=== PATIENT | male | born 1965 | race Caucasian/White ===

== ENCOUNTER 2025-10-02 19:37 | Inpatient (IN) | payer MEDICAID ==
[~2025-10-02] VITALS: Ht 162.6 cm; Wt 64.0 kg
[2025-10-02 19:38] VITALS: O2SAT 96
[2025-10-02 20:47] LABS: BASOPHILS % 0.4 % (0.0-2.0); EOSINOPHILS % 0.7 % (0.0-5.0); HEMATOCRIT. 31.7 % (42.0-52.0); HEMOGLOBIN. 10.5 g/dL (14.0-18.0); LYMPHOCYTES % 11.6 % (20.0-50.0); MEAN PLATELET VOLUME 10.2 fl (7.4-10.4); MONOCYTES % 8.6 % (2.0-8.0); NEUTROPHILS % 78.7 % (40.0-76.0); PLATELET 149 x1000/uL (130-400); RED BLOOD CELL COUNT 3.21 mill/uL (4.7-6.1); RED CELL DISTRIBUTION WIDTH 14.6 % (11.6-14.6)
[2025-10-02 21:01] LABS: TROPONIN I HIGH SENSITIVITY 23 ng/L (3.0-53); UREA NITROGEN BLOOD 70 mg/dL (9-23)
[2025-10-02 21:02] LABS: ASPARTATE AMINOTRANSFERASE 12 IU/L (<34); BILIRUBIN DIRECT 0.1 mg/dL (<=3.0)
[2025-10-02 21:03] LABS: BILIRUBIN TOTAL 0.3 mg/dL (0.1-1.0); PROTEIN TOTAL 7.7 g/dL (6.0-8.3)
[2025-10-02 21:06] LABS: CREATININE 15.4 mg/dL (0.6-1.3)
[2025-10-02] MEDS ORDERED: FUROSEMIDE 100MG/10ML VIAL IV SCH (21:15)
[2025-10-02] MEDS ORDERED: ALBUTEROL (0.5%) 2.5MG/0.5ML NEB HHN SCH (21:15)
[2025-10-02] MEDS: MORPHINE SULFATE 2 MG/ML INJ (NOT FOR IM USE) IV SCH (23:11)
[2025-10-02] MEDS: INSULIN REGULAR (HUMULIN R) 1000UNITS/10ML VIAL IV SCH (23:17)
[2025-10-02] MEDS: DEXTROSE 50% WATER 50ML SYRINGE IV SCH (23:20)
[2025-10-02] MEDS: CALCIUM GLUCONATE 100MG/ML 10ML VIAL IV SCH (23:21)
[2025-10-02] MEDS ORDERED: IPRATROPIUM/ALBUTEROL 0.5-3(2.5)MG/3ML NEB HHN PRN (23:30)
[2025-10-02] MEDS ORDERED: MAGNESIUM/ALUMINUM HYDROXIDE/SIMETHICONE 30ML UDC PO PRN (23:30)
[2025-10-02] MEDS ORDERED: ALBUTEROL (0.5%) 2.5MG/0.5ML NEB HHN NR (23:30)
[2025-10-02] MEDS ORDERED: FUROSEMIDE 100MG/10ML VIAL IV NR (23:30)
[2025-10-03] VITALS (14 sets, daily range): BP systolic 119–164; BP diastolic 55–85; PULSE 69–96; RESP 18–22; TEMP 36.114–37.2; O2SAT 97–100
[2025-10-03] MEDS ORDERED: ASPI-1406 MT (01:41)
[2025-10-03] MEDS ORDERED: SUCR500T PO (01:41)
[2025-10-03] MEDS ORDERED: SODI5POW2 PO (01:41)
[2025-10-03] MEDS ORDERED: TRAM50TA3 MT (01:41)
[2025-10-03] MEDS ORDERED: OMEP20CA14 PO (01:41)
[2025-10-03] MEDS ORDERED: ATOR40TA70 MT (01:41)
[2025-10-03] MEDS ORDERED: TOPUD PO (01:41)
[2025-10-03] MEDS ORDERED: ACID1CAP3 MT (01:41)
[2025-10-03] MEDS ORDERED: AMLO10TA80 PO (01:41)
[2025-10-03] MEDS ORDERED: LISI40TA21 MT (01:41)
[2025-10-03] MEDS ORDERED: ALLO100T MT (01:41)
[2025-10-03] MEDS ORDERED: VITA1CAP16 PO (01:41)
[2025-10-03] MEDS ORDERED: FOLI-43 PO (01:41)
[2025-10-03] MEDS ORDERED: FOLI0.8T42 MT (01:41)
[2025-10-03] MEDS ORDERED: OMEG100036 MT (01:41)
[2025-10-03] MEDS ORDERED: *PATIENT'S OWN MEDICATION STORAGE XX SCH (04:30)
[2025-10-03] MEDS: TRAMADOL 50MG TABLET PO PRN (06:14)
[2025-10-03 08:32] LABS: BASOPHILS % 0.4 % (0.0-2.0); EOSINOPHILS % 0.2 % (0.0-5.0); HEMATOCRIT. 35.8 % (42.0-52.0); HEMOGLOBIN. 11.9 g/dL (14.0-18.0); LYMPHOCYTES % 14.3 % (20.0-50.0); MEAN PLATELET VOLUME 10.4 fl (7.4-10.4); MONOCYTES % 8.6 % (2.0-8.0); NEUTROPHILS % 76.5 % (40.0-76.0); PLATELET 166 x1000/uL (130-400); RED BLOOD CELL COUNT 3.65 mill/uL (4.7-6.1); RED CELL DISTRIBUTION WIDTH 14.5 % (11.6-14.6)
[2025-10-03 08:44] LABS: UREA NITROGEN BLOOD 29.0 mg/dL (9-23)
[2025-10-03 08:47] LABS: PHOSPHORUS 2.7 mg/dL (2.5-4.9)
[2025-10-03] MEDS: ALLOPURINOL 100 MG TABLET PO SCH (08:47)
[2025-10-03] MEDS: FISH OIL/OMEGA-3 FATTY ACIDS 1000MG CAPSULE PO SCH (08:47)
[2025-10-03] MEDS: AMLODIPINE 10MG TABLET PO SCH (08:47)
[2025-10-03 08:48] LABS: CREATININE 8.0 mg/dL (0.6-1.3)
[2025-10-03] MEDS: FOLIC ACID/VITAMIN B COMP W-C TABLET PO SCH (08:49)
[2025-10-03] MEDS: ENOXAPARIN 30MG/0.3ML SYR SUBCUT SCH (08:49)
[2025-10-03] MEDS: LISINOPRIL 40MG TABLET PO SCH (08:51)
[2025-10-03] MEDS: ACETAMINOPHEN 325MG TABLET PO PRN (09:10)
[2025-10-03 14:26] LABS: FOLIC ACID (FOLATE) SERUM > 20.00 ng/mL (>5.38); VITAMIN B12 SERUM 1833 pg/mL (211-911)
[2025-10-03] MEDS: GUAIFENESIN 200MG/10ML SUGAR FREE UDC PO PRN (20:42)
[2025-10-03] MEDS: ONDANSETRON HCL 4MG/2ML INJ IV PRN (20:42)
[2025-10-03] MEDS: ATORVASTATIN CALCIUM 40MG TABLET PO SCH (20:43)
[2025-10-03 22:29] LABS: INFLUENZA TYPE A Presumptive Negative (Pres. Neg.)
[2025-10-03 22:30] LABS: INFLUENZA TYPE B Presumptive Negative (Pres. Neg.)
[2025-10-04] VITALS (13 sets, daily range): BP systolic 119–139; BP diastolic 66–86; PULSE 85–96; RESP 17–20; TEMP 36.3–37.2; O2SAT 96–100
[2025-10-04 07:13] LABS: BASOPHILS % 0.3 % (0.0-2.0); EOSINOPHILS % 0.6 % (0.0-5.0); HEMATOCRIT. 29.1 % (42.0-52.0); HEMOGLOBIN. 9.6 g/dL (14.0-18.0); LYMPHOCYTES % 15.4 % (20.0-50.0); MEAN PLATELET VOLUME 10.8 fl (7.4-10.4); MONOCYTES % 12.4 % (2.0-8.0); NEUTROPHILS % 71.3 % (40.0-76.0); PLATELET 136 x1000/uL (130-400); RED BLOOD CELL COUNT 2.94 mill/uL (4.7-6.1); RED CELL DISTRIBUTION WIDTH 14.7 % (11.6-14.6)
[2025-10-04 07:17] LABS: UREA NITROGEN BLOOD 47.0 mg/dL (9-23)
[2025-10-04 07:19] LABS: CREATININE 10.7 mg/dL (0.6-1.3)
[2025-10-04] MEDS: PANTOPRAZOLE 40MG DR TABLET PO SCH (09:03)
[2025-10-04] MEDS: SUCRALFATE 1G TABLET PO SCH (13:26)
[2025-10-05] VITALS (7 sets, daily range): BP systolic 111–133; BP diastolic 55–73; PULSE 77–93; RESP 16–19; TEMP 36.5–37.1; O2SAT 88–98
[2025-10-05 06:17] LABS: UREA NITROGEN BLOOD 30.0 mg/dL (9-23)
[2025-10-05 06:30] LABS: BASOPHILS % 0.3 % (0.0-2.0); EOSINOPHILS % 1.0 % (0.0-5.0); HEMATOCRIT. 30.3 % (42.0-52.0); HEMOGLOBIN. 10.2 g/dL (14.0-18.0); LYMPHOCYTES % 13.2 % (20.0-50.0); MEAN PLATELET VOLUME 10.8 fl (7.4-10.4); MONOCYTES % 12.7 % (2.0-8.0); NEUTROPHILS % 72.8 % (40.0-76.0); PLATELET 134 x1000/uL (130-400); RED BLOOD CELL COUNT 3.08 mill/uL (4.7-6.1); RED CELL DISTRIBUTION WIDTH 14.2 % (11.6-14.6)
[2025-10-05 06:54] LABS: HEPATITIS A AB IGM NEGATIVE (Negative)
[2025-10-05 06:55] LABS: HEPATITIS B CORE AB IGM NEGATIVE (Negative); HEPATITIS C AB NON REACTIVE (Neg) (Negative)
[2025-10-05 09:19] LABS: CREATININE 8.1 mg/dL (0.6-1.3)
[2025-10-05] MEDS ORDERED: ACET-2708 MT (15:59)
[2025-10-05] MEDS ORDERED: PROT40 MT (15:59)
[2025-10-05] MEDS ORDERED: LISI40TA21 MT (15:59)
[2025-10-05] MEDS ORDERED: TRAM50TA3 MT (15:59)
[2025-10-05] MEDS ORDERED: CLOP75TA33 MT (15:59)
[2025-10-05] MEDS ORDERED: ALLO100T MT (15:59)
[2025-10-05] MEDS ORDERED: SUCR1TAB MT (15:59)
[2025-10-05] MEDS ORDERED: AMLO10TA80 MT (15:59)
[2025-10-06] VITALS (13 sets, daily range): BP systolic 100–111; BP diastolic 51–70; PULSE 66–97; RESP 16–18; TEMP 36.4–36.8; O2SAT 93–100
[2025-10-06 06:18] LABS: PLATELET 152 x1000/uL (130-400); RED BLOOD CELL COUNT 2.82 mill/uL (4.7-6.1); RED CELL DISTRIBUTION WIDTH 14.1 % (11.6-14.6)
[2025-10-06 06:25] LABS: UREA NITROGEN BLOOD 41.0 mg/dL (9-23)
[2025-10-06 06:45] LABS: C REACTIVE PROTEIN HIGH SENS 165.76 mg/l (<1.00); CREATININE 10.1 mg/dL (0.6-1.3)
[2025-10-06 14:24] LABS: BG BASE EXCESS 2.0 mmol/L (-2.0-3.0); BG CARBOXYHEMOGLOBIN 1.1 % (0.5-1.5); BG DEOXYHEMOGLOBIN 11.3 % (0.0-5.0); BG FRACTION INSPIRED OXYGEN 21; BG HCO3 ACT 26.6 mmol/L (21.0-28.0); BG METHEMOGLOBIN 0.3 % (0.5-1.5); BG OXYGEN SATURATION 88.5 % (94.0-98.0); BG OXYHEMOGLOBIN 87.3 % (94.0-98.0); BG PCO2 42.0 mmHg (35.0-48.0); BG PH 7.420 (7.350-7.450); BG PO2 55.3 mmHg (83.0-108.0); BG SAMPLE SITE RIGHT BRACHIAL; BG TOTAL HEMOGLOBIN 10.4 g/dL (13.5-17.5); BG VENT MODE ROOM AIR
[2025-10-06] MEDS: DOCUSATE SODIUM 100MG CAPSULE PO PRN (21:12)
[2025-10-07] VITALS: BP 113/58; PULSE 70; RESP 18; TEMP 36.7; O2SAT 100
[2025-10-07] MEDS: MELATONIN 3MG TABLET PO PRN (00:02)
[2025-10-07 04:00] VITALS: BP 111/52; PULSE 68; RESP 18; TEMP 36.6; O2SAT 100
[2025-10-07 08:00] VITALS: BP 129/60; PULSE 69; RESP 14; TEMP 36.3; O2SAT 100
[2025-10-07 09:45] LABS: BASOPHILS % 0.7 % (0.0-2.0); EOSINOPHILS % 5.1 % (0.0-5.0); HEMATOCRIT. 29.3 % (42.0-52.0); HEMOGLOBIN. 9.6 g/dL (14.0-18.0); LYMPHOCYTES % 29.3 % (20.0-50.0); MEAN PLATELET VOLUME 10.1 fl (7.4-10.4); MONOCYTES % 14.3 % (2.0-8.0); NEUTROPHILS % 50.6 % (40.0-76.0); PLATELET 193 x1000/uL (130-400); RED BLOOD CELL COUNT 2.96 mill/uL (4.7-6.1); RED CELL DISTRIBUTION WIDTH 13.9 % (11.6-14.6)
[2025-10-07 10:08] LABS: CREATININE 9.2 mg/dL (0.6-1.3); UREA NITROGEN BLOOD 38.0 mg/dL (9-23)
[2025-10-07 12:00] VITALS: BP 110/52; PULSE 73; RESP 16; TEMP 36.7; O2SAT 98
[2025-10-07 13:11] LABS: ANTI-NUCLEAR ANTIBODIES DIRECT Negative (Negative)
[2025-10-07 16:00] VITALS: BP 123/68; PULSE 75; RESP 18; TEMP 36.5; O2SAT 98
[2025-10-07 17:24] VITALS: BP 132/73; PULSE 76; RESP 16; TEMP 97.7
[2025-10-08 13:08] LABS: ATYPICAL P-ANCA <1:20 titer (Neg:<1:20); CYTOPLASMIC C-ANCA <1:20 titer (Neg:<1:20); PERINUCLEAR P-ANCA <1:20 titer (Neg:<1:20)
[2025-10-09 10:10] LABS: SACCHAROMYCES CEREVISIAE IGG 25.2 Units (0.0-24.9); SACCHAROMYCES CEREVISIAE IGM 21.1 Units (0.0-24.9)
== END 2025-10-07 18:25 | disposition home or self-care (01) | DRG 425 ==
LOC: ER 19:37 → 7WST 22:28 → ENRESERV 10-03 00:30
PROVIDERS: ADMIT Hospitalist; ATTEND Hospitalist
PROC: 5A1D70Z Performance of Urinary Filtration, Intermittent, Less than 6 Hours Per Day (ICD-10-PCS; principal; 2025-10-03)
PROC: 5A1D70Z Performance of Urinary Filtration, Intermittent, Less than 6 Hours Per Day (ICD-10-PCS; 2025-10-04)
PROC: 5A1D70Z Performance of Urinary Filtration, Intermittent, Less than 6 Hours Per Day (ICD-10-PCS; 2025-10-06)
DX: E87.5 Hyperkalemia (principal); N18.6 End stage renal disease; I12.0 Hypertensive chronic kidney disease with stage 5 chronic kidney disease or end stage renal disease; E11.22 Type 2 diabetes mellitus with diabetic chronic kidney disease; D53.9 Nutritional anemia, unspecified; E83.52 Hypercalcemia; Z99.2 Dependence on renal dialysis; J44.89 Other specified chronic obstructive pulmonary disease; Q61.3 Polycystic kidney, unspecified; Z91.158 Patient's noncompliance with renal dialysis for other reason; J84.9 Interstitial pulmonary disease, unspecified; I25.10 Atherosclerotic heart disease of native coronary artery without angina pectoris; M10.9 Gout, unspecified; G89.29 Other chronic pain; K58.0 Irritable bowel syndrome with diarrhea; Z95.1 Presence of aortocoronary bypass graft
CPT/HCPCS: 36415; 36600; 74176; 76604; 80048; 80076; 80320; 82375; 82607; 82728; 82746; 82805; 83520; 83540; 83550; 84100; 84145; 84484; 85025; 85027; 86038; 86141; 86256; 86671; 86705; 86709; 87340; 87804; 90935; 93005; 99285; A4606; J0612; J1650; J1815; J2270; J2405; G0480